=== PATIENT | female | born 1950 | race Caucasian/White ===

== ENCOUNTER → 2021-12-21 | Outpatient (REF) | payer MEDICARE, BC ==
[2021-12-21 18:32] LABS: TOTAL PROTEIN,RANDOM URINE 85.3 MG/DL (0.0-12.0)
== END ==
LOC: M LAB REF 17:00
PROVIDERS: ATTEND Nurse Practitioner Family
DX: R80.9 Proteinuria, unspecified (principal)

== ENCOUNTER → 2023-01-23 | Outpatient (REF) | payer MEDICARE, BC, OTHER ==
[2023-01-23 18:57] LABS: TOTAL PROTEIN,RANDOM URINE 113.7 MG/DL (0.0-14.0)
[2023-01-23 19:01] LABS: CREATININE,RANDOM URINE 140.9 MG/DL
== END ==
LOC: M LAB REF 17:20
PROVIDERS: ATTEND Nurse Practitioner Family
DX: R80.9 Proteinuria, unspecified (principal)

== ENCOUNTER → 2023-09-04 | Outpatient (REF) | payer MEDICARE, BC, OTHER ==
[2023-09-04 19:23] LABS: CREATININE,RANDOM URINE 176.7 MG/DL
[2023-09-04 19:27] LABS: TOTAL PROTEIN,RANDOM URINE 225.3 MG/DL (0.0-14.0)
== END ==
LOC: M LAB REF 17:10
PROVIDERS: ATTEND Nurse Practitioner Family
DX: R80.9 Proteinuria, unspecified (principal)

== ENCOUNTER → 2023-10-31 | Outpatient (REF) | payer MEDICARE, BC, OTHER ==
[2023-10-31 18:41] LABS: PERCENT SATURATION 19.9 % (13.2-45.0)
[2023-10-31 18:44] LABS: FERRITIN 77.2 NG/ML (7.3-270.7)
== END ==
LOC: M LAB REF 17:30
PROVIDERS: ATTEND Nurse Practitioner Family
DX: D50.9 Iron deficiency anemia, unspecified (principal)

== ENCOUNTER → 2024-03-25 | Outpatient (REF) | payer MEDICARE, BC, OTHER ==
[2024-03-25 18:39] LABS: TOTAL PROTEIN,RANDOM URINE 53.2 MG/DL (0.0-14.0)
[2024-03-25 18:44] LABS: CREATININE,RANDOM URINE 89.8 MG/DL
== END ==
LOC: M LAB REF 17:16
PROVIDERS: ATTEND Nurse Practitioner Family
DX: R80.9 Proteinuria, unspecified (principal)

== ENCOUNTER 2024-12-24 10:03 | Emergency (ER) | payer MEDICARE, BC, OTHER ==
[~2024-12-24] VITALS: Ht 152.4 cm; Wt 60.2 kg
[2024-12-24 10:07] VITALS: TEMP 99.2
[2024-12-24] MEDS ORDERED: LOSA100T46 (10:29)
[2024-12-24] MEDS ORDERED: DIGO0.123 (10:29)
[2024-12-24] MEDS ORDERED: METO100T5 (10:29)
[2024-12-24] MEDS ORDERED: TRAV2.5D (10:29)
[2024-12-24] MEDS ORDERED: BRIM0.2S13 (10:29)
[2024-12-24] MEDS ORDERED: BUSP5TA (10:29)
[2024-12-24] MEDS ORDERED: PANT40TA29 (10:29)
[2024-12-24] MEDS ORDERED: ELIQ5TAB PO (10:29)
[2024-12-24] MEDS ORDERED: ONDA-83 (10:29)
[2024-12-24] MEDS ORDERED: TIMO0.5S20 (10:29)
[2024-12-24] MEDS ORDERED: METF500T13 (10:29)
[2024-12-24 12:45] LABS: BASO % 0.3 % (0.0-1.0); EOS % 0.4 % (0.0-3.0); HEMATOCRIT 35.7 % (36.0-47.0); LYMPH # 0.9 10^3/uL (1.5-5.0); LYMPH % 13.2 % (24.0-44.0); MEAN CORPUSCULAR HEMOGLOBIN 29.9 pg (27.0-33.0); MEAN CORPUSCULAR HGB CONC 33.6 g/dl (32.0-36.5); MEAN CORPUSCULAR VOLUME 88.8 fl (80.0-96.0); MONO # 0.5 10^3/uL (0.0-0.8); MONO % 6.9 % (2.0-8.0); NEUTROPHILS # 5.3 10^3/uL (1.5-8.5); NEUTROPHILS % 78.9 % (36.0-66.0); PLATELET COUNT, AUTOMATED 289 10^3/uL (150-450); RED BLOOD COUNT 4.02 10^6/uL (4.00-5.40); WHITE BLOOD COUNT 6.7 10^3/uL (4.0-10.0)
[2024-12-24 15:25] LABS: ALBUMIN 3.4 G/DL (3.2-5.2); ALKALINE PHOSPHATASE 513 U/L (35-104); ALT/SGPT 344 U/L (7.0-40); AST/SGOT 286 U/L (<34); BILIRUBIN,TOTAL 4.8 MG/DL (0.3-1.2); BLOOD UREA NITROGEN 12 MG/DL (9-23); CALCIUM LEVEL 9.1 MG/DL (8.3-10.6); CARBON DIOXIDE LEVEL 24 MMOL/L (20-31); CHLORIDE LEVEL 98 MMOL/L (98-107); GLOMERULAR FILTRATION RATE > 60.0 (>39); GLUCOSE, FASTING 114 MG/DL (74-106); LIPASE 34 U/L (12-53); POTASSIUM SERUM 5.3 MMOL/L (3.5-5.1); SODIUM LEVEL 136 MMOL/L (136-145); TOTAL PROTEIN 6.8 G/DL (5.7-8.2)
[2024-12-24] MEDS: MIDAZOLAM INJ 2MG/2ML VIAL IV STA (17:13)
[2024-12-24] MEDS: METOPROLOL TART 50 MG TAB PO ONE (19:37)
[2024-12-24] MEDS: PIPERACILLIN/TAZOBACTAM SOD 4.5 GM in DEXTROSE 5% (D5W) ADV/MINI-BAG 50 ML IV ONE (19:38)
[2024-12-24 21:00] VITALS: BP 169/88; O2SAT 97
[2024-12-24] MEDS: NS (Normal Saline) 0.9% 1,000 ML IV SCH (21:00)
== END 2024-12-24 21:24 | disposition short-term general hospital (02) ==
LOC: M ED 10:03
DX: K80.20 Calculus of gallbladder without cholecystitis without obstruction (principal); I48.91 Unspecified atrial fibrillation; E11.9 Type 2 diabetes mellitus without complications; E78.5 Hyperlipidemia, unspecified; I10 Essential (primary) hypertension; Z79.01 Long term (current) use of anticoagulants; Z79.84 Long term (current) use of oral hypoglycemic drugs; Z79.899 Other long term (current) drug therapy
CPT/HCPCS: 74181; 80053; 83690; 85025; 96365; 96375; 99284; J2250; J2543